=== PATIENT | male | born 1965 ===

== ENCOUNTER 2019-05-04 15:40 | Emergency (ER) | payer OTHER ==
[2019-05-04] MEDS ORDERED: Lidocaine 1% w/Epinephrine 1:100K 30 ML VIAL ONE (16:25)
[2019-05-04] MEDS ORDERED: Adacel (T-DAP) 0.5 ML SYRINGE ONE (16:27)
--- NOTE | 2019-05-04 16:59 | CT ---
CT OF THE BRAIN WITHOUT CONTRAST: 05/04/19 HISTORY: Injury. Fell off a tractor, trauma to the head on a metal part of the tractor. FINDINGS: No evidence of acute infarct, hemorrhage, midline shift or abnormal extra-axial fluid collections are seen. The ventricular size is normal and the basilar cisterns patent. The bony calvarium is intact. There is fluid in the left maxillary sinus which may be due to sinus disease or a facial fracture. Cl inical correlation is recommended. There are tiny radiopaque densities in the right frontal scalp srikanth picious for radiopaque foreign bodies. IMPRESSION: No CT evidence of acute intracranial process. Please see above. POS: ERROL
--- NOTE | 2019-05-04 17:01 | RAD ---
XR Knee Rt 4 View STANDARD HISTORY: Injury, right knee pain FINDINGS: No fracture or dislocation is identified.
--- NOTE | 2019-05-04 17:11 | CT ---
CT CERVICAL SPINE WITH CORONAL AND SAGITTAL REFORMATIONS AND NO IV CONTRAST: HISTORY: Injury, neck pain FINDINGS: Degenerative changes are present most prominent at C5-6 level.. There is loss of cervical lordosis with straightening of the cervical spine. No fracture, subluxation or facet malalignment is identified. No prevertebral soft tissue swelling is apparent. The visualized lung apices are unremarkable. There is fluid in the left maxillary sinus with thickening of the lee likely due to acute on chroni c sinusitis. IMPRESSION: No CT evidence for fracture or traumatic subluxation.
[2019-05-04] MEDS ORDERED: Bacitracin 1 PK ONE (17:37)
== END 2019-05-04 18:19 ==
LOC: NAV ERS 15:40
DX: S01.01XA Laceration without foreign body of scalp, initial encounter (principal); S80.01XA Contusion of right knee, initial encounter; S80.811A Abrasion, right lower leg, initial encounter; E11.9 Type 2 diabetes mellitus without complications; E78.5 Hyperlipidemia, unspecified; E78.00 Pure hypercholesterolemia, unspecified; I10 Essential (primary) hypertension; Z23 Encounter for immunization; W18.09XA Striking against other object with subsequent fall, initial encounter
CPT/HCPCS: 12002; 70450; 72125; 90471; 90715; J2001